=== PATIENT | female | born 1975 | race African-American/Black ===

== ENCOUNTER 2016-12-20 08:40 | Emergency (ER) | payer OTHER ==
[~2016-12-20] VITALS: Wt 83.2 kg
[2016-12-20] MEDS ORDERED: HYDROCODONE/APAP (5/325) TAB PO ONE (10:00)
[2016-12-20] MEDS ORDERED: CYCL-319 PO (10:50)
[2016-12-20] MEDS ORDERED: NAPR-260 PO (10:50)
[2016-12-20] MEDS ORDERED: TRAM50TA2 PO (10:51)
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
== END 2016-12-20 11:15 | disposition home or self-care (01) ==
LOC: FTE 08:40
DX: S19.9XXA Unspecified injury of neck, initial encounter (principal); S39.92XA Unspecified injury of lower back, initial encounter; V89.2XXA Person injured in unspecified motor-vehicle accident, traffic, initial encounter
CPT/HCPCS: 99284

== ENCOUNTER 2018-03-26 13:53 | Emergency (ER) | END 2018-03-26 17:43 | disposition home or self-care (01) ==

== ENCOUNTER 2018-06-16 08:43 | Emergency (ER) | payer MEDICARE, OTHER ==
[~2018-06-16] VITALS: Wt 121.0 kg
[~2018-06-16 08:43] MED LIST: AZIT500T3 PO; CYCL10TA7 PO; NAPR-985 PO; TRAM50TA2 PO
[2018-06-16] MEDS ORDERED: ONDANSETRON 4 MG INJ IV STA (09:23)
[2018-06-16] MEDS ORDERED: KETOROLAC 30 MG INJ IV STA (10:13)
[2018-06-16] MEDS ORDERED: SOD CHLORIDE 0.9% 1,000 ML IV ONE (10:15)
[2018-06-16] MEDS ORDERED: CEFTRIAXONE 1 GM/50 ML (PMX) 50 ML IVPB ONE (10:30)
[2018-06-16] MEDS ORDERED: IBUP-1542 PO (12:19)
[2018-06-16] MEDS ORDERED: CEPH-443 PO (12:19)
--- NOTE | 2018-06-16 12:22 | ERD ---
ER Documentation Chief Complaint Chief Complaint LEFT LOWER ABD SINCE LAST NIGHT HPI 43-year-old female presents with a 1 day history of lower abdominal pain. She may have chills and nausea but no vomiting. She denies urinary complaints. She denies history of or possible . Pain is described currently as 2 out of 10 but is intermittent migrates between right and left. Nonradiating. No specific relieving or exacerbating factors. ROS All systems reviewed and are negative except as per history of present illness. Medications Home Meds Active Scripts Ibuprofen* (Motrin*) 600 Mg Tab, 600 MG PO Q6, #15 TAB Prov:MATTHIAS CUMMINS MD 06/16/18 Cephalexin* (Keflex*) 500 Mg Capsule, 500 MG PO QID for 5 Days, CAP Prov:MATTHIAS CUMMINS MD 06/16/18 Azithromycin* (Zithromax*) 500 Mg Tablet, 500 MG PO DAILY for 3 Days, TAB Prov:MARY DUNN PA-C 03/26/18 Tramadol HCl (Tramadol HCl) 50 Mg Tablet, 50 MG PO Q4 PRN for PAIN, #20 TAB Prov:PEEWEE QUEZADA PA-C 12/20/16 Cyclobenzaprine Hcl* (Cyclobenzaprine Hcl*) 10 Mg Tablet, 10 MG PO QHS, #7 TAB Prov:PEEWEE QUEZADA PA-C 12/20/16 Naproxen* (Naprosyn*) 500 Mg Tablet, 500 MG PO BID PRN for PAIN AND/OR INFLAMMATION, #30 TAB Prov:PEEWEE QUEZADA PA-C 12/20/16 Allergies Allergies: Coded Allergies: No Known Allergy (Unverified , 07/01/13) PMhx/Soc History of Surgery: Yes (CYST REMOVAL) Anesthesia Reaction: No Hx Neurological Disorder: No Hx Respiratory Disorders: No Hx Cardiac Disorders: No Hx Psychiatric Problems: Yes (DEPRESSION, BIPOLAR) Hx Miscellaneous Medical Probl: Yes (DM) Hx Alcohol Use: No Hx Substance Use: No Hx Tobacco Use: No Smoking Status: Never smoker Physical Exam Vitals Vital Signs Date Temp Pulse Resp B/P (MAP) Pulse Ox O2 O2 Flow FiO2 Time Delivery Rate 06/16/18 98.1 106 18 153/87 99 08:45 (109) Physical Exam Const: No acute distress Head: Atraumatic Eyes: Normal Conjunctiva ENT: Normal External Ears, Nose and Mouth. Neck: Full range of motion. No meningismus. Resp: Clear to auscultation bilaterally Cardio: Regular rate and rhythm, no murmurs Abd: Soft, mild lower abdominal tenderness. No focal tenderness McBurney's point no Tran sign. No rebound., non distended. Normal bowel sounds Skin: No petechiae or rashes Back: No midline or flank tenderness Ext: No cyanosis, or edema Neur: Awake and alert Psych: Normal Mood and Affect Result Diagram: 06/16/1892206/16/18922 Results 24 hrs Laboratory Tests Test 06/16/18 09:23 06/16/18 09:29 06/16/18 09:38 White Blood Count 11.0 10^3/ul Red Blood Count 4.73 10^6/ul Hemoglobin 12.3 g/dl Hematocrit 38.3 % Mean Corpuscular Volume 81.0 fl Mean Corpuscular Hemoglobin 26.0 pg Mean Corpuscular 32.1 g/dl Hemoglobin Concent Red Cell Distribution Width 12.9 % Platelet Count 279 10^3/UL Mean Platelet Volume 9.6 fl Immature Granulocytes % 0.600 % Neutrophils % 70.0 % Lymphocytes % 23.5 % Monocytes % 4.4 % Eosinophils % 1.1 % Basophils % 0.4 % Nucleated Red Blood Cells % 0.0 /100WBC Immature Granulocytes # 0.070 10^3/ul Neutrophils # 7.7 10^3/ul Lymphocytes # 2.6 10^3/ul Monocytes # 0.5 10^3/ul Eosinophils # 0.1 10^3/ul Basophils # 0.0 10^3/ul Nucleated Red Blood Cells # 0.0 10^3/ul Sodium Level 139 mmol/L Potassium Level 4.1 mmol/L Chloride Level 101 mmol/L Carbon Dioxide Level 29 mmol/L Anion Gap 9 Blood Urea Nitrogen 11 mg/dl Creatinine 0.58 mg/dl Est Glomerular Filtrat > 60 mL/min Rate mL/min Glucose Level 288 mg/dl Calcium Level 10.0 mg/dl Total Bilirubin 0.1 mg/dl Direct Bilirubin 0.00 mg/dl Indirect Bilirubin 0.1 mg/dl Aspartate Amino 20 IU/L Transf (AST/SGOT) Alanine 27 IU/L Aminotransferase (ALT/SGPT) Alkaline Phosphatase 96 IU/L Total Protein 8.5 g/dl Albumin 4.2 g/dl Globulin 4.30 g/dl Albumin/Globulin Ratio 0.97 Lipase 82 U/L Urine Color YELLOW Urine Clarity SLIGHTLY CLOUDY Urine pH 5.0 Urine Specific [place] 1.020 Urine Ketones NEGATIVE mg/dL Urine Nitrite NEGATIVE mg/dL Urine Bilirubin NEGATIVE mg/dL Urine Urobilinogen NEGATIVE mg/dL Urine Leukocyte Esterase 1+ Sawyer/ul Urine Microscopic RBC 8 /HPF Urine Microscopic WBC 7 /HPF Urine Squamous Epithelial Cells FEW /HPF Urine Hemoglobin 3+ mg/dL Urine Glucose 1+ mg/dL Urine Total Protein NEGATIVE mg/dl POC Beta HCG, Qualitative NEGATIVE Current Medications Medications Dose Sig/Glenn Start Time Status Last (Trade) Ordered Route PRN Stop Time Admin Dose Reason Admin Ondansetron 4 mg ONCE STAT 06/16/18 DC 06/16/18 HCl (Zofran IV 09:23 09:38 Inj) 06/16/18 09:24 Ketorolac 30 mg ONCE STAT 06/16/18 DC 06/16/18 Tromethamine IV 10:13 10:34 (Toradol) 06/16/18 10:22 Sodium 1,000 ml @ Q0M ONCE 06/16/18 DC 06/16/18 Chloride 0 mls/hr IV 10:15 10:35 06/16/18 10:16 Ceftriaxone 50 ml @ ONCE ONCE 06/16/18 DC 06/16/18 Sodium 100 mls/hr IVPB 10:30 10:35 06/16/18 10:59 Procedures/MDM Patient presents with lower abdominal pain of uncertain etiology since yesterday. CBC shows leukocytosis which is mild at 11. Glucose is elevated to 88. Urine shows leukocyte esterase, white blood cells and hCG is negative. The abdomen pelvis shows no acute abnormalities. Patient was given Rocephin 1 g IV, Toradol 30 mg IV, 1 L normal saline IV for findings of UTI abdominal pain of uncertain etiology. Patient has no current signs or symptoms of appendicitis, abscess, surgical abdomen, additional emergent cause of presenting complaints. Her pain may be from UTI. She will be treated with Keflex, ibuprofen, primary care follow-up and return precautions. The patient was stable with no new complaints during the ER course. Clinically, there is no current evidence to suggest meningitis, sepsis, acute abdomen, pneumonia, stroke, acute coronary syndrome, pulmonary embolism, aortic dissection or any other emergent condition appearing to require further evaluation or hospitalization. Patient counseled regarding my diagnostic impression and care plan. Prior to discharge all questions answered. Pt agrees with treatment plan and understands strict return precautions. Pt is instructed to follow up with primary care provider within 24- 48 hours. Precautionary instructions provided including instructions to return to the ER if not improving or for any worsening or changing symptoms or concerns. Departure Diagnosis: Primary Impression: Urinary tract infection Urinary tract infection type: site unspecified Hematuria presence: without hematuria Qualified Codes: N39.0 - Urinary tract infection, site not specified Additional Impression: Abdominal pain Abdominal location: unspecified location Qualified Codes: R10.9 - Unspecified abdominal pain Condition: Stable Patient Instructions: Abdominal Pain, Understanding Urinary Tract Infections (UTIs) Additional Instructions: All examinations normal except findings of urinary tract infection and will treat for this. Recheck for vomiting, worsening pain, new worsening symptoms. MATTHIAS CUMMINS MD Jun 16, 2018 12:22
[2018-06-16] MEDS ORDERED: MAGN400O19 PO (12:24)
[2018-06-16 12:57] VITALS: BP 135/94; PULSE 88; RESP 16
== END 2018-06-16 13:15 | disposition home or self-care (01) ==
LOC: FTE 08:43
DX: N39.0 Urinary tract infection, site not specified (principal); E11.9 Type 2 diabetes mellitus without complications
CPT/HCPCS: 36415; 74176; 80053; 81001; 81025; 83690; 85025; 96361; 96365; 96375; 99285; J0696; J1885; J2405; J7030

== ENCOUNTER → 2018-06-17 | Emergency (ER) | payer MEDICARE, OTHER ==
[~2018-06-17] VITALS: Ht 167.6 cm; Wt 86.5 kg
[~2018-06-17] MED LIST changes: +CEPH-443 PO; +IBUP-1542 PO; +MAGN400O19 PO
[2018-06-17 17:49] VITALS: Ht 167.6 cm; Wt 86.5 kg
[2018-06-17 21:33] VITALS: BP 143/90; PULSE 87; RESP 18
--- NOTE | 2018-06-19 02:03 | ERD ---
ER Documentation Chief Complaint Chief Complaint vaginal bleeding, "passed large clot" wants to know if she id HPI Pt is a 43 year old F with hx of irregular menstrual cycles who presents to the ED with complaints of suprapubic abdominal pain and "vaginal bleeding" x 2 days. She was seen here yesterday for similar complaints. Workup including CBC, CMP and CT abd pelvis were done and normal. UA was positive for UTI so pt was given a rx for Keflex and sent home. She presents again today because she started to pass "nickel sized clots" today and wants to know if she is . She cannot recall being told if her beta hcg was checked yesterday. She states her LMP was 3 months ago, however she has a hx of irregular menstrual cycles. States she has had unprotected sexual intercourse since then and believes she could be . She endorses some lightheadedness but otherwise denies any dizziness, syncopal episodes, nausea, vomiting, fevers, chills, flank pain, vaginal discharge, foul smelling discharge, dysuria, frequency or urgency. ROS All systems reviewed and are negative except as per history of present illness. Medications Home Meds Active Scripts Magnesium Hydroxide* (Milk Of Magnesia*) 400 Mg/5 Ml Oral.susp, 30 ML PO BID for constipation for 7 Days, ML Prov:MATTHIAS CUMMINS MD 06/16/18 Ibuprofen* (Motrin*) 600 Mg Tab, 600 MG PO Q6, #15 TAB Prov:MATTHIAS CUMMINS MD 06/16/18 Cephalexin* (Keflex*) 500 Mg Capsule, 500 MG PO QID for 5 Days, CAP Prov:MATTHIAS CUMMINS MD 06/16/18 Azithromycin* (Zithromax*) 500 Mg Tablet, 500 MG PO DAILY for 3 Days, TAB Prov:MARY DUNN PA-C 03/26/18 Tramadol HCl (Tramadol HCl) 50 Mg Tablet, 50 MG PO Q4 PRN for PAIN, #20 TAB Prov:PEEWEE QUEZADA PA-C 12/20/16 Cyclobenzaprine Hcl* (Cyclobenzaprine Hcl*) 10 Mg Tablet, 10 MG PO QHS, #7 TAB Prov:PEEWEE QUEZADA PA-C 12/20/16 Naproxen* (Naprosyn*) 500 Mg Tablet, 500 MG PO BID PRN for PAIN AND/OR INFLAMMATION, #30 TAB Prov:PEEWEE QUEZADA PA-C 12/20/16 Allergies Allergies: Coded Allergies: No Known Allergy (Unverified , 07/01/13) PMhx/Soc History of Surgery: Yes (CYST REMOVAL) Anesthesia Reaction: No Hx Neurological Disorder: No Hx Respiratory Disorders: No Hx Cardiac Disorders: No Hx Psychiatric Problems: Yes (DEPRESSION, BIPOLAR) Hx Miscellaneous Medical Probl: Yes (DM) Hx Alcohol Use: No Hx Substance Use: No Hx Tobacco Use: No Physical Exam Vitals Vital Signs Date Temp Pulse Resp B/P (MAP) Pulse Ox O2 O2 Flow FiO2 Time Delivery Rate 06/17/18 98.0 87 18 143/90 99 Room Air 21:33 (107) 06/17/18 98.4 86 18 156/84 100 17:49 (108) Physical Exam Const: No acute distress Head: Atraumatic Eyes: Normal Conjunctiva ENT: Normal External Ears, Nose and Mouth. Neck: Full range of motion. No meningismus. Resp: Clear to auscultation bilaterally Cardio: Regular rate and rhythm, no murmurs Abd: Soft, + mild suprapubic tenderness, non distended. No rebound or guarding. Normal bowel sounds. Negative mcburney's. Negative Tran's. Skin: No petechiae or rashes Back: No midline or flank tenderness Ext: No cyanosis, or edema Neur: Awake and alert Psych: Normal Mood and Affect Result Diagram: 06/17/182009 Results 24 hrs Laboratory Tests Test 06/17/18 20:10 White Blood Count 11.6 10^3/ul Red Blood Count 4.61 10^6/ul Hemoglobin 11.9 g/dl Hematocrit 37.5 % Mean Corpuscular Volume 81.3 fl Mean Corpuscular Hemoglobin 25.8 pg Mean Corpuscular Hemoglobin Concent 31.7 g/dl Red Cell Distribution Width 13.1 % Platelet Count 245 10^3/UL Mean Platelet Volume 9.5 fl Immature Granulocytes % 0.300 % Neutrophils % 59.3 % Lymphocytes % 33.5 % Monocytes % 5.2 % Eosinophils % 1.5 % Basophils % 0.2 % Nucleated Red Blood Cells % 0.0 /100WBC Immature Granulocytes # 0.040 10^3/ul Neutrophils # 6.9 10^3/ul Lymphocytes # 3.9 10^3/ul Monocytes # 0.6 10^3/ul Eosinophils # 0.2 10^3/ul Basophils # 0.0 10^3/ul Nucleated Red Blood Cells # 0.0 10^3/ul Urine Color YELLOW Urine Clarity CLEAR Urine pH 5.0 Urine Specific [place] 1.019 Urine Ketones NEGATIVE mg/dL Urine Nitrite NEGATIVE mg/dL Urine Bilirubin NEGATIVE mg/dL Urine Urobilinogen NEGATIVE mg/dL Urine Leukocyte Esterase NEGATIVE [place]/ul Urine Hemoglobin NEGATIVE mg/dL Urine Glucose 1+ mg/dL Urine Total Protein NEGATIVE mg/dl Procedures/MDM EMERGENT LABS AND DIAGNOSTIC STUDIES: Lab Results above were reviewed and interpreted by me as below. CBC: WBC mildly elevated at 11.6. no e/o of severe anemia Urine: 1+ glucose otherwise no evidence of pyuria or hematuria Radiology Results as interpreted by Radiology: PROCEDURE: US Pelvis. CLINICAL INDICATION: Vaginal bleeding TECHNIQUE: Transabdominal pelvic ultrasound are performed. COMPARISON: Report from 05/10/2011 FINDINGS: The uterus is normal in echogenicity and anteverted in orientation. The uterus measures 7.9 x 3.2 x 4.8 cm. No focal fibroids are identified. A normal endometrium is identified measuring 8.7 mm. The cervix is normal in appearance. Ovaries are not visualized. There are no complex adnexal masses. There is no free fluid in the pelvis IMPRESSION: 1. Limited transabdominal study. 2. Uterus and endometrium grossly unremarkable. 3. Ovaries not visualized. There are no complex adnexal masses RPTAT: .Jameel Ross MD, Date Time Electronically viewed and signed by .Jameel Ross MD, MD on 06/17/2018 20:44 Nursing Notes Reviewed. Previous Medical Records requested via the Electronic Health Record. EMERGENCY DEPARTMENT COURSE / MEDICAL DECISION MAKING: Pt is a 43 year old F with hx of irregular menses who presented with complaints of vaginal bleeding. She was seen here yesterday with a full workup done which was positive for a UTI. She presents again today complaining of spurapubic pain, vaginal bleeding and concerns for . I discussed with h er beta hcg results from yesterday which was negative for . Repeat UA today without evidence of pyuria or hematuria. Pt has now been on Keflex for 2 days. Repeat CBC showed white count minimally elevated at 11 however differential normal. She is non toxic appearing on physical exam, no signs of an acute surgical abdomen. Vital signs normal. I have low suspicion for sepsis. Pelvic US as above was grossly unremarkable. I discussed with pt that her vagina bleeding is most likely related to her menses and does not require further emergent evaluation. I recommended she follow up with her PCP or OBGY in 2 days, otherwise return to the ED for any new or worsening sx. Prior to discharge, patients vital signs have been reviewed SPECIALIST FOLLOW UP RECOMMENDED: OBGYN Patient has been advised to follow up with primary care in 1-2 days. Patient's blood pressure was elevated (>120/80) but appears stable without evidence of hypertension emergency or urgency. The patient was counseled about the risks of hypertension and urged to pursue outpatient monitoring and therapy within a week with their primary care physician Departure Diagnosis: Primary Impression: Vaginal bleeding Additional Impression: UTI (urinary tract infection) Condition: Stable Patient Instructions: Understanding Urinary Tract Infections (UTIs) Referrals: CHRISTIAN JAY MD, ROY M.D. BROUKHIM, BIJAN MD DELSHAD, GEORGE M MD Additional Instructions: Thank you very much for allowing us to participate in your care. Your health and safety is our top priority at [facility]. Call your primary care doctor TOMORROW for an appointment during the next 2-4 days and bring all the information and medications prescribed. If the symptoms get worse and your provider is unavailable, return to the Emergency Department immediately. LEIGH SPARKS PA-C Jun 19, 2018 01:49
== END | disposition home or self-care (01) ==
LOC: FTE 17:48
DX: N93.9 Abnormal uterine and vaginal bleeding, unspecified (principal); N39.0 Urinary tract infection, site not specified; E11.9 Type 2 diabetes mellitus without complications
CPT/HCPCS: 36415; 76856; 81003; 85025